=== PATIENT | female | born 1985 | race Caucasian/White ===

== ENCOUNTER → 2017-08-31 | Emergency (ER) | payer OTHER ==
[~2017-08-31] VITALS: Ht 160 cm; Wt 83.9 kg
[~2017-08-31] MED LIST: CARAFATE1 GM PO; CITRANATAL B-C1 EAC1; DOCUSATE SODIU100 MG PO; METOCLOPRAMIDE10 MG PO; Mylicon 125MG PO; OSEL75CA PO; OXYC1TAB9 PO; PANTOPRAZOLE SO40 MG PO; PNV-FERROUS FU1 EACH PO
== END | disposition home or self-care (01) ==
LOC: ER 21:00
DX: Z34.01 Encounter for supervision of normal first pregnancy, first trimester (principal); J10.1 Influenza due to other identified influenza virus with other respiratory manifestations

== ENCOUNTER → 2017-09-04 | Emergency (ER) | payer OTHER ==
[~2017-09-04] VITALS: Ht 160 cm; Wt 83.9 kg
== END | disposition home or self-care (01) ==
LOC: ER 19:55
DX: Z34.81 Encounter for supervision of other normal pregnancy, first trimester (principal); O20.8 Other hemorrhage in early pregnancy

== ENCOUNTER 2017-11-07 23:49 | Emergency (ER) | payer OTHER ==
[~2017-11-07] VITALS: Ht 160 cm; Wt 84.4 kg
== END 2017-11-08 07:35 | disposition home or self-care (01) ==
LOC: ER 23:49
DX: O20.0 Threatened abortion (principal); Z34.82 Encounter for supervision of other normal pregnancy, second trimester

== ENCOUNTER 2017-11-15 15:24 | Emergency (ER) | payer OTHER ==
[~2017-11-15] VITALS: Ht 160 cm; Wt 84.8 kg
[2017-11-15] MEDS ORDERED: [UNRECOGNIZED DRUG - OTHER] (15:39)
[2017-11-15] MEDS ORDERED: PROGESTERONA (15:39)
== END 2017-11-15 22:03 | disposition home or self-care (01) ==
LOC: ER 15:24
DX: O20.8 Other hemorrhage in early pregnancy (principal); Z34.82 Encounter for supervision of other normal pregnancy, second trimester

== ENCOUNTER 2017-12-05 18:14 | Emergency (ER) | payer OTHER ==
[~2017-12-05] VITALS: Ht 160 cm; Wt 84.8 kg
[~2017-12-05 18:14] MED LIST changes: +PROGESTERONA; +[UNRECOGNIZED DRUG - OTHER]
== END 2017-12-05 22:05 | disposition home or self-care (01) ==
LOC: ER 18:14
DX: O20.0 Threatened abortion (principal); Z34.82 Encounter for supervision of other normal pregnancy, second trimester

== ENCOUNTER 2017-12-12 13:27 | Outpatient (CLI) | payer OTHER ==
[2017-12-12] MEDS ORDERED: KEFLEX500 MG PO (21:25)
== END 2017-12-12 21:00 | disposition home or self-care (01) ==
LOC: OBS/DEL 13:27
DX: O46.8X2 Other antepartum hemorrhage, second trimester (principal); O43.892 Other placental disorders, second trimester; O60.02 Preterm labor without delivery, second trimester; Z34.82 Encounter for supervision of other normal pregnancy, second trimester

== ENCOUNTER 2017-12-13 09:27 | Inpatient (IN) | payer OTHER ==
[~2017-12-13] VITALS: Ht 160 cm; Wt 84.4 kg
[~2017-12-13 09:27] MED LIST changes: +KEFLEX500 MG PO
== END 2017-12-14 14:34 | DRG 779 ==
LOC: OB/GYN 09:27 → LDR 09:27 → OB/GYN 13:12
PROC: 10E0XZZ Delivery of Products of Conception, External Approach (ICD-10-PCS; principal; 2017-12-13)
PROC: BY4CZZZ Ultrasonography of Second Trimester, Single Fetus (ICD-10-PCS; 2017-12-13)
PROC: 4A1HXCZ Monitoring of Products of Conception, Cardiac Rate, External Approach (ICD-10-PCS; 2017-12-13)
DX: O02.1 Missed abortion (principal); O43.892 Other placental disorders, second trimester; Z3A.20 20 weeks gestation of pregnancy; Z37.1 Single stillbirth